=== PATIENT | male | born 1975 | race Caucasian/White ===

== ENCOUNTER 2017-04-21 10:20 | Emergency (ER) | payer MEDICARE ==
[2017-04-21 10:28] VITALS: PULSE 70; O2SAT 97
[2017-04-21] MEDS ORDERED: Marcaine 0.5% SDV 10 ML IJ ONE (10:28)
[2017-04-21] MEDS ORDERED: Adacel Vial IM ONE ×2 (10:28→10:37)
[2017-04-21] MEDS ORDERED: KEFZOL 1 GM IM ONE (10:28)
[2017-04-21] MEDS ORDERED: Marcaine 0.5% SDV 10 ML ONE (10:31)
[2017-04-21] MEDS ORDERED: KEFZOL 1 GM ONE (10:34)
--- NOTE | 2017-04-21 10:41 | ERPHSYRPT ---
- History of Present Illness Time Seen by Provider: 04/21/17 10:23 Source: patient, family Patient Subjective Stated Complaint: pt has laceration to right index finger with a log splitter Triage Nursing Assessment: pt has lacerartion to right index finger with nail bed loose . no bleeding at present tiem Physician History: CC: right index finger Hx: 41 y/o diabetic patient of Dr Solorio smashed right index finger in a log splitter at home this AM prior to arrival. Unsure last tetanus vaccine. No other injuries. Pain is moderately severe and throbbing. Extremities Pain Location: 2nd finger: right Allergies/Adverse Reactions: No Known Drug Allergies Allergy (Verified 04/21/17 10:29) Home Medications: Hydrocodone Bit/Acetaminophen [[place] 7.5-325 Tablet] 1 each PO Q4-6HPRN PRN [History] Insulin Glargine [Lantus Insulin] 50 unit SQ QAM 06/21/12 [History] Insulin Lispro [Humalog] 12 unit SQ TID 06/21/12 [History] Paroxetine HCl 20 mg [Paxil 20 MG] 40 mg PO DAILY 06/21/12 [History] Lisinopril [Lisinopril] 10 mg DAILY 04/21/17 [History] Methotrexate Sodium [Methotrexate] 2.5 mg DAILY 04/21/17 [History] Hx Tetanus, Diphtheria Vaccination/Date Given: No Hx Influenza Vaccination/Date Given: No Hx Pneumococcal Vaccination/Date Given: No Immunizations Up to Date: Yes - Review of Systems Constitutional: No Symptoms Musculoskeletal: Injury (right index finger) Neurological: No Focal Weakness, No Parasthesia - Past Medical History Pertinent Past Medical History: Yes Neurological History: No Pertinent History ENT History: No Pertinent History Cardiac History: No Pertinent History Respiratory History: No Pertinent History Endocrine Medical History: Diabetes Type II Musculoskeletal History: No Pertinent History GI Medical History: No Pertinent History History: No Pertinent History Psycho-Social History: No Pertinent History Male Reproductive Disorders: No Pertinent History Other Medical History: Pt has skin disorder called hidradenitis suppurativa. - Past Surgical History Past Surgical History: Yes Neuro Surgical History: No Pertinent History Cardiac: No Pertinent History Respiratory: No Pertinent History Gastrointestinal: No Pertinent History Genitourinary: No Pertinent History Musculoskeletal: No Pertinent History Male Surgical History: No Pertinent History - Social History Smoking Status: Never smoker Exposure to second hand smoke: No Drug Use: none Patient Lives Alone: No - Nursing Vital Signs Nursing Vital Signs: Initial Vital Signs Temperature 97.2 F 04/21/17 10:23 Pulse Rate 70 04/21/17 10:23 Respiratory Rate 16 04/21/17 10:23 Blood Pressure 138/80 04/21/17 10:23 O2 Sat by Pulse Oximetry 97 04/21/17 10:23 Pain Scale Pain Intensity 7 - Physical Exam General Appearance: alert Neck Exam: supple Cardiovascular/Respiratory Exam: regular rate/rhythm Neuro/Tendon Exam: normal motor functions Mental Status Exam: alert, oriented x 3, cooperative Skin Exam: warm, dry SpO2: 97 Oxygen Delivery: Room Air Comments: Right index finger: there is mangled stellate laceration distal at the DIP, involves nail proximal fold and bed. There is complete subungal hematoma and partial nail avulsion present. Cap refill present distal finger. Light touch sensation intact. Procedures - Laceration/Wound Repair right index finger Wound Location: Right Wound Length (cm): 3 Wound's Depth, Shape: irregular, nail-avulsed, contused tissue Wound Explored: contaminated (grease stained hands) Irrigated: Yes Hibiclens Prep: Yes Anesthesia: digital block, marcaine 0.5 Volume Anesthetic (ccs): 4 Wound Debrided: minimal Wound Repaired With: sutures Sterile Dressing Applied?: Yes Progress: 04/21/17 11:45 The right hand was cleansed with hibiclens. Digital block was toppedoff with an addl cc marcaine. The nail was mostly avulsed with the proximal nail fold radial side avulsed. The nail was removed form the nailbed. There were nailbed abrasions with mild oozing of blood. There were two proximal nailbed lacerations 2 mm each closed with 5-0 vicryl simple #1 each. The laceration extended from the proximal corned of the nail bed around the radial side of the finger. This was closed with 4-0 prolene simple interupted #4. Pressure was held and the nail was replaced in the nail fold groove with bacitracin ointment. Telfa and loose tube gauze dressing applied. There was hemostasis. Discussed risk of infection, nail injury including possible normal regrowth, no growth, or deformity. Offered hand surgeon referral but he preferred repair here with follow up with Dr Solorio. Wound care instr given. Appt tomorrow for wound check and dressing change. - Course Nursing assessment & vital signs reviewed: Yes Ordered Tests: Active Orders 24 hr Category Date Time Status Wound Care STAT Care 04/21/17 10:28 Active FINGER(S) Stat Exams 04/21/17 10:47 Completed Medication Summary Discontinued Medications Generic Name Dose Route Start Last Admin Trade Name Freq PRN Reason Stop Dose Admin Bacitracin Confirm 04/21/17 11:18 Baciguent Packet Administered 04/21/17 11:19 Dose 1 gm .ROUTE .STK-MED ONE Bupivacaine HCl 5 ml 04/21/17 10:28 04/21/17 10:37 Marcaine 0.5% Sdv 10 Ml IJ 04/21/17 10:29 5 ml STAT ONE Administration Bupivacaine HCl Confirm 04/21/17 10:31 Marcaine 0.5% Sdv 10 Ml Administered 04/21/17 10:32 Dose 10 ml .ROUTE .STK-MED ONE Cefazolin Sodium 1 g 04/21/17 10:28 04/21/17 10:36 Kefzol 1 Gm IM 04/21/17 10:29 1 g STAT ONE Administration Cefazolin Sodium Confirm 04/21/17 10:34 Kefzol 1 Gm Administered 04/21/17 10:35 Dose 1 g .ROUTE .STK-MED ONE Diphtheria/Tetanus/Acell Pertussis 0.5 ml 04/21/17 10:28 04/21/17 10:38 Adacel Vial IM 04/21/17 10:29 0.5 ml .ONCE ONE Administration Diphtheria/Tetanus/Acell Pertussis Confirm 04/21/17 10:37 Adacel Vial Administered 04/21/17 10:38 Dose 0.5 ml IM .STK-MED ONE - Progress Progress Note: 04/21/17 11:49 Adacel updated. IM kefzol and Rx keflex given. Counseled pt/family regarding: diagnosis, need for follow-up, rad results - Departure Time of Disposition: 11:50 Departure Disposition: Home Clinical Impression: Laceration of finger of right hand with damage to nail Qualifiers: Encounter type: initial encounter Finger: index finger Foreign body presence: without foreign body Qualified Code(s): S61.310A - Laceration without foreign body of right index finger with damage to nail, initial encounter Condition: Stable Critical Care Time: No Referrals: BIJAN SOLORIO MD [Primary Care Provider] - Instructions: Care for a Laceration After Repair Additional Instructions: See Dr Solorio tomorrow at 11:15 for wound check and dressing change. Rx keflex sent to [facility]. The external blue sutures will need removal in 10 days. LACERATION CARE 1. Do not use peroxide, merthiolate, alcohol, or betadine. 2. Keep wound clean and dry. 3. Change dressing if it becomes wet or soiled. 4. If you must work, wear protective covering. 5. You may return to the emergency department or see your family physician for suture removal. 6. See your family physician or return to the emergency department for any of the following signs or symptoms: A. Redness B. Swelling C. Discolored drainage D. Red streaks E. Elevated temperature F. Other signs of infection Prescriptions: Cephalexin Mh 500 mg [Keflex 500 mg] 1 cap PO QID #28 capsule
--- NOTE | 2017-04-21 11:00 | XRAY ---
Indication: Finger caught in log splitter. Comparison: None 3 views of the right second finger demonstrates distal soft tissue swelling/laceration. No other bony, articular, or soft tissue abnormalities.
[2017-04-21] MEDS ORDERED: BACIGUENT PACKET ONE (11:18)
[2017-04-21 12:04] VITALS: BP 162/60
[2017-04-21] MEDS ORDERED: BACIGUENT PACKET TP ONE (16:45)
== END 2017-04-21 12:04 | disposition home or self-care (01) ==
LOC: ED 10:20
PROC: 0HQFXZZ Repair Right Hand Skin, External Approach (ICD-10-PCS; principal; 2017-04-21)
DX: S61.310A Laceration without foreign body of right index finger with damage to nail, initial encounter (principal); W31.89XA Contact with other specified machinery, initial encounter; Z79.891 Long term (current) use of opiate analgesic; Z79.899 Other long term (current) drug therapy; Z79.4 Long term (current) use of insulin; E11.9 Type 2 diabetes mellitus without complications
CPT/HCPCS: 12002; 73140; 90471; 90715; 96372; 99284; J0690; A9270-GY